=== PATIENT | female | born 1990 | race Caucasian/White ===

== ENCOUNTER 2017-04-13 21:00 | Inpatient (IN) ==
[2017-04-13] MEDS ORDERED: PEPCID PO PRN (22:16)
[2017-04-13] MEDS ORDERED: PEPCID IV PRN (22:16)
[2017-04-13] MEDS ORDERED: STADOL IV PRN (22:16)
[2017-04-13] MEDS ORDERED: TYLENOL PO PRN (22:16)
[2017-04-13] MEDS ORDERED: ZOFRAN IV PRN (22:16)
[2017-04-13] MEDS ORDERED: KEFZOL 1 GM/D5W 1 GM/50 ML IVPB IV PRN (22:16)
[2017-04-13] MEDS ORDERED: AMBIEN PO PRN (22:20)
[2017-04-13 22:28] LABS: URINE SOURCE VOIDED
[2017-04-13] MEDS ORDERED: SODIUM CHLORIDE 0.9% INJ SCH (22:30)
[2017-04-13 22:35] LABS: BILIRUBIN URINE NEGATIVE (NEGATIVE); BLOOD URINE NEGATIVE (NEGATIVE); CLARITY CLEAR (CLEAR); COLOR YELLOW; GLUCOSE URINE NEGATIVE (NEGATIVE); LEUKOCYTES URINE TRACE (NEGATIVE); NITRITE URINE NEGATIVE (NEGATIVE); PH URINE 6.5; PROTEIN URINE NEGATIVE (NEGATIVE); UROBILINOGEN URINE NORMAL
[2017-04-13 22:38] LABS: UR AMPHETAMINES QUAL NONE DETECTED (NONE DETECT); UR BARBITUATES QUAL NONE DETECTED (NONE DETECT); UR BENZODIAZEPIN QUAL NONE DETECTED (NONE DETECT); UR CANNABINOIDS QUAL NONE DETECTED (NONE DETECT); UR COCAINE QUAL NONE DETECTED (NONE DETECT); UR MDMA QUAL NONE DETECTED (NONE DETECT); UR METHADONE QUAL NONE DETECTED (NONE DETECT); UR METHAMPHETAMINE QUAL NONE DETECTED (NONE DETECT); UR OPIATES QUAL NONE DETECTED (NONE DETECT); UR OXYCODONE QUAL NONE DETECTED (NONE DETECT); UR PCP QUAL NONE DETECTED (NONE DETECT); UR TCA QUAL NONE DETECTED (NONE DETECT)
[2017-04-13] MEDS ORDERED: PEPCID ONE ×2 (22:40)
[2017-04-14] MEDS: LR 1,000 ML IV SCH ×2 (05:45→07:50)
[2017-04-14] MEDS ORDERED: PITOCIN 30 UNITS/LR 30 UNITS/500 ML IV.SOLN IV SCH (06:00)
[2017-04-14 06:35] LABS: MANUAL DIFF NEEDED? NO
[2017-04-14 06:39] LABS: BASO% 0.3 % (0.0-0.8); EOS# 0.08 X1000 (0.0-0.7); EOS% 1.1 % (0.0-10.0); HEMATOCRIT 33.9 % (37.0-47.0); HEMOGLOBIN 10.8 g/dL (12.0-16.0); IMM GRAN# 0.02 X1000 (0.0-0.04); IMM GRAN% 0.3 % (0.0-0.5); LYMPH# 1.54 X1000 (1.2-3.4); LYMPH% 21.8 % (20.5-51.1); MCH 28.5 PG (27-31); MCHC 31.9 g/dL (33-37); MCV 89.4 FL (81-99); MONO# 0.64 X1000 (0.11-0.59); MONO% 9.1 % (1.7-9.3); MPV 11.9 FL (7.4-10.4); NEUT% 67.4 % (42.2-75.2); PLT 164 X1000 (130-400); RBC 3.79 XMIL (4.2-5.4)
[2017-04-14] MEDS ORDERED: FENTANYL-BUPIV-NS 2 MCG-0.1% 200 ML EPIDURAL PRN (07:17)
[2017-04-14] MEDS ORDERED: XYLOCAINE-MPF 1% INJ ONE (09:19)
[2017-04-14] MEDS ORDERED: MINERAL OIL PO ONE (09:19)
[2017-04-14] MEDS ORDERED: BOOSTRIX VACCINE IM ONE (12:18)
[2017-04-14] MEDS ORDERED: BENADRYL IV PRN (12:18)
[2017-04-14] MEDS ORDERED: PITOCIN 20 UNITS/LR 20 UNITS/1,000 ML IV.SOLN IV SCH (12:18)
[2017-04-14] MEDS ORDERED: HYDROXYZINE IM PRN (12:18)
[2017-04-14] MEDS ORDERED: MINERAL OIL PO PRN (12:18)
[2017-04-14] MEDS ORDERED: HYDROXYZINE PO PRN (12:18)
[2017-04-14] MEDS ORDERED: PITOCIN 30 UNITS/LR 30 UNITS/500 ML IV.SOLN IV ONE (12:18)
[2017-04-14] MEDS ORDERED: M-M-R II VACCINE SUBQ ONE (12:18)
[2017-04-14] MEDS ORDERED: BENADRYL PO PRN (12:18)
[2017-04-14] MEDS ORDERED: PERI MEDS (DERMOPLAST/NUPERCAINAL/TUCKS) MISC PRN (12:18)
[2017-04-14] MEDS ORDERED: CYTOTEC PO PRN (12:18)
[2017-04-14] MEDS ORDERED: AMBIEN PO PRN (12:18)
[2017-04-14] MEDS ORDERED: XYLOCAINE-MPF 1% INJ PRN (12:18)
[2017-04-14] MEDS ORDERED: PITOCIN IM PRN (12:18)
--- NOTE | 2017-04-14 13:56 | OPERATIVE NOTE ---
PROCEDURE DATE: 04/14/2017 PREDELIVERY DIAGNOSES: Intrauterine at 39 and 2 for elective induction. POSTDELIVERY DIAGNOSES: Intrauterine at 39 and 2 for elective induction, nuchal cord without compression and macrosomia. PROCEDURE: Vaginal delivery. PHYSICIAN: Dr. Jose Fischer. ANESTHESIA: Epidural with Dr. Appiah. FINDINGS: Viable female infant, 8 pounds 13 ounces, 9 and 10 Apgars. Placenta was spontaneous, intact. Cord was 3 vessels. There is a right periurethral/labial tear repaired with 3-0 Polysorb. ESTIMATED BLOOD LOSS: 100 mL. Please refer to Ms. Camara's records. She had good care starting in early 1st trimester. Rh positive blood type. Immune to rubella. She was also found to have a high-grade BEVERLEY. Occult blood done did not reveal any abnormalities although will need to follow up after delivery with a Pap smear. Quad screen was negative. She passed her glucose tolerance test and had no complications during the . She was admitted started, on Pitocin this morning, was artificially ruptured. Received epidural anesthesia and made quick progress to complete. Began pushing. Approximately 25 minutes later she was , at which point the bed was broken down, and she was prepped and draped. With the next 2 contractions, she pushed very well and delivered a viable female infant, occiput anterior, over an intact perineum. Once head delivered, nuchal cord x1 was reduced with a small amount of difficulty. Then shoulders and rest of the body followed easily. placed on mother's abdomen. Cord was doubly clamped and cut and care of infant was taken over to the nursery personnel. Cord blood was obtained and then inspection of the perineum did not reveal any lacerations but the right labia was lacerated along into the periurethral area. This was repaired with 3-0 Polysorb. Once this was done, there were no other lacerations noted. Gentle traction on the cord resulted in delivery of the placenta which was inspected, found to be intact and discarded. All counts were correct. Estimated blood loss 100 mL. Expect routine . cc: Jose Fischer MD
[2017-04-14] MEDS: MOTRIN PO PRN (18:07)
[2017-04-14] MEDS: NORCO-5 PO PRN (18:07)
[2017-04-14] MEDS: NORCO-10 PO PRN (21:29)
[2017-04-14] MEDS: PERICOLACE PO SCH (21:29)
[2017-04-15] MEDS: NORCO-10 PO PRN ×2 (01:58→20:46)
[2017-04-15] MEDS: MOTRIN PO PRN ×3 (01:58→17:08)
[2017-04-15 04:41] LABS: MANUAL DIFF NEEDED? NO
[2017-04-15 04:48] LABS: BASO% 0.4 % (0.0-0.8); EOS% 1.3 % (0.0-10.0); HEMATOCRIT 29.9 % (37.0-47.0); HEMOGLOBIN 9.2 g/dL (12.0-16.0); IMM GRAN# 0.02 X1000 (0.0-0.04); IMM GRAN% 0.3 % (0.0-0.5); LYMPH# 1.91 X1000 (1.2-3.4); LYMPH% 24.9 % (20.5-51.1); MCHC 30.8 g/dL (33-37); MCV 91.2 FL (81-99); MONO# 0.67 X1000 (0.11-0.59); MONO% 8.7 % (1.7-9.3); MPV 12.2 FL (7.4-10.4); NEUT% 64.4 % (42.2-75.2); PLT 150 X1000 (130-400); RBC 3.28 XMIL (4.2-5.4)
[2017-04-15] MEDS: PRECARE PO SCH (08:52)
[2017-04-15] MEDS: HEMOCYTE PLUS CAPSULE PO SCH (08:52)
[2017-04-15] MEDS: NORCO-5 PO PRN ×2 (09:45→17:08)
[2017-04-15] MEDS: PERICOLACE PO SCH (20:46)
[2017-04-16] MEDS: MOTRIN PO PRN ×2 (03:56→12:22)
[2017-04-16 08:16] VITALS: BP 137/80
[2017-04-16] MEDS: PRECARE PO SCH (08:22)
[2017-04-16] MEDS: NORCO-5 PO PRN ×2 (08:22→12:22)
[2017-04-16] MEDS: HEMOCYTE PLUS CAPSULE PO SCH (08:22)
== END 2017-04-16 13:00 | disposition home or self-care (01) ==
LOC: P.LD 21:26 → P.WC 04-14 13:39
PROVIDERS: ADMIT Obstetrics & Gynecology; ATTEND Obstetrics & Gynecology